=== PATIENT | male | born 1990 | race Caucasian/White ===

== ENCOUNTER 2021-11-15 08:57 | Emergency (ER) | payer MEDICAID, SELFPAY ==
[2021-11-15 09:01] VITALS: BP 111/77; PULSE 72; RESP 18; TEMP 36.8; O2SAT 100
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
--- NOTE | 2021-11-15 09:28 | DI.RAD_ITS ---
Exam(s) XR WRIST RT COMPLETE EXAM: XR WRIST RT COMPLETE CLINICAL HISTORY: Wrist Injury 6 days ago, pain. TECHNIQUE: 2D digital imaging was performed. COMPARISON: No exams were available for comparison FINDINGS: Four views There is a suggestion of a subtle fracture at the distal dorsal aspect of the radius as seen only on the lateral view. No other fractures identified. No significant ulnar variance. Scaphoid appears u nremarkable. Scapholunate distance normal. Bone density normal. No osseous lesions. No radiopaque foreign body IMPRESSION: Possible subtle fracture on the dorsal aspect of the distal radius. If clinically indicated further study with CT or MRI can be performed. DATA REPOSITORY: RADIATION DOSE DELIVERED:
--- NOTE | 2021-11-15 10:19 | PDOC.ERCMPRO ---
- If Service Date Differs Date of service: 11/15/21 Time of Service: 10:19 Care Management Progress Note SBIRT screen: positive for vaping nicotine and cannabis monthly or more. Pt reports he does not have a PCP. Pt was referred to [facility] for support with nicotine cessation and finding a PCP. Pt reports no substance use or mental health symptoms.
== END 2021-11-15 10:28 | disposition home or self-care (01) ==
PROVIDERS: Emergency Provider Registered Nurse Emergency
DX: S52.501A Unspecified fracture of the lower end of right radius, initial encounter for closed fracture (principal); V19.9XXA Pedal cyclist (driver) (passenger) injured in unspecified traffic accident, initial encounter; F17.290 Nicotine dependence, other tobacco product, uncomplicated
CPT/HCPCS: 29125; 99283; 73110; 99284

== ENCOUNTER 2021-11-27 15:25 | Outpatient (CLI) | payer MEDICAID, SELFPAY ==
--- NOTE | 2021-11-27 15:07 | DI.RAD_ITS ---
Exam(s) XR WRIST RT COMPL NAVICULAR EXAM: XR WRIST RT COMPL NAVICULAR CLINICAL HISTORY: f/u R DISTAL RADIUS FRACTURE TECHNIQUE: COMPARISON: CR XR WRIST RT COMPLETE from 11/15/2021 FINDINGS: Four views were obtained. Previously described fracture of the distal radius is again noted and is m ore easily visualized on today's examination. Fracture fragments remain mildly displaced and unchang ed in alignment comparison with prior examination. No other bony abnormality seen. IMPRESSION: RADIATION DOSE DELIVERED: Total DLP
== END 2021-11-27 15:26 | disposition home or self-care (01) ==
LOC: DIORS 15:25
PROVIDERS: Visit Provider Physician Assistant
DX: S52.501D Unspecified fracture of the lower end of right radius, subsequent encounter for closed fracture with routine healing (principal); X58.XXXD Exposure to other specified factors, subsequent encounter
CPT/HCPCS: 73110

== ENCOUNTER 2021-12-18 14:16 | Outpatient (CLI) | payer MEDICAID, SELFPAY ==
--- NOTE | 2021-12-18 14:15 | DI.RAD_ITS ---
Exam(s) XR WRIST RT COMPLETE EXAM: XR WRIST RT COMPLETE CLINICAL HISTORY: R distal radius fx. TECHNIQUE: 2D digital imaging was performed. Three views. COMPARISON: CR XR WRIST RT COMPL NAVICULAR from 11/27/2021 FINDINGS: BONES: There has been no change in the alignment of the fracture of the dorsal aspect of the distal r adius.. No bony destructive lesion is seen. JOINTS: The carpal bones are normally aligned. There are mild degenerative changes at the 1st carpal metacarpal joint. SOFT TISSUE: Normal. IMPRESSION: No change in distal radial fracture. DATA REPOSITORY: RADIATION DOSE DELIVERED:
== END 2021-12-18 14:17 | disposition home or self-care (01) ==
LOC: DIORS 14:18
PROVIDERS: Visit Provider Physician Assistant
DX: S52.501A Unspecified fracture of the lower end of right radius, initial encounter for closed fracture (principal); X58.XXXA Exposure to other specified factors, initial encounter
CPT/HCPCS: 73110